=== PATIENT | female | born 2000 | race African-American/Black ===

== ENCOUNTER 2022-11-30 15:46 | Emergency (ER) | payer OTHER, SELFPAY ==
--- NOTE | ~2022-11-30 | US_ITS ---
EXAMINATION: OBSTETRIC ULTRASOUND-SECOND TRIMESTER CLINICAL INFORMATION: Abdominal pain, . COMPARISON: Pelvic ultrasound 01/14/2018. TECHNIQUE: Transabdominal imaging of the uterus was performed utilizing [place] scale and color doppler technique, with m-mode imaging. FINDINGS: Single live intrauterine fetus in the vertex position with cardiac activity detected at 125 bpm. Low anterior placenta. BIOMETRIC MEASUREMENTS FOLLOWS: Biparietal diameter: 8.28 cm corresponding to gestational age of 33 weeks and 3 days. Head circumference: 30.23 cm corresponding to gestational age of 33 weeks and 5 days. Abdominal circumference: 26.88 cm corresponding to a gestational age of 31 weeks and 0 days. Femur length: 6.2 cm corresponding to gestational age of 32 weeks and 1 day. US/US OB limited IMPRESSION: 1. Single live intrauterine with estimated gestational age by ultrasound of 32 weeks and 4 days. heart rate is 125 bpm. 2. Estimated weight 3 pounds and 15 ounces. 3. Low anterior placenta, adequate correlation with the cervical os to rule out placenta previa was not obtained. Additional evaluation by OB-specialist is advised. 4. Of note, this examination was not obtained for assessment of the anatomy. OB specialist evaluation is recommended.
[2022-11-30 15:51] VITALS: BP 108/60; BP 113/81; PULSE 91; PULSE 94; RESP 16; TEMP 36.9; O2SAT 97; O2SAT 98; BMI 22.6
[2022-11-30 16:05] VITALS: BP 113/81; PULSE 91; RESP 16; TEMP 36.9; O2SAT 98
[2022-11-30 17:12] LABS: MANUAL DIFF FLAG NO
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
[2022-11-30 17:17] LABS: Basophils Percent Auto 0.5 % (0-2); Eosinophils Absolute Auto 0.1 X10*3/uL (0.0-0.4); Eosinophils Percent Auto 1.1 % (0-4); Hematocrit 34.1 % (37.0-47.0); Hemoglobin 11.1 g/dl (12.0-16.0); Imm Gran Abs Auto 0.04 X10*3/uL (0.00-0.03); Imm Gran Pct Auto 0.5 % (0.0-0.4); Lymphocytes Absolute Auto 2.3 X10*3/uL (1.2-4.9); Lymphocytes Percent Auto 27.5 % (20-40); Mean Corpuscular HGB Conc 32.6 g/dl (31.0-35.0); Mean Corpuscular Hemoglobin 31.7 pg (27.0-33.0); Mean Corpuscular Volume 97.4 fL (80.0-98.0); Mean Platelet Volume 8.3 fL (9.4-12.3); Monocytes Absolute Auto 0.6 X10*3/uL (0.1-1.2); Monocytes Percent Auto 7.6 % (2-11); Neutrophils Absolute Auto 5.2 x10*3/uL (2.0-8.3); Neutrophils Percent Auto 62.8 % (45-73); Platelet Count 234 X10*3/uL (160-400); Red Cell Distribution Width 13.9 % (11.0-16.0); White Blood Count 8.2 X10*3/uL (4.8-10.8)
[2022-11-30 17:29] LABS: COVID-19 Test Negative (Negative); IDNOW Serial# 9DB6401D
[2022-11-30 17:37] LABS: Alanine Aminotransferase 19 U/L (0-31); Albumin Level 3.2 g/dL (3.5-5.0); Alkaline Phosphatase 114 U/L (39-117); Anion Gap 11 (12-20); Aspartate Amino Transferase 16 U/L (5-31); Bilirubin Total 0.3 mg/dL (0.0-1.0); Blood Urea Nitrogen 7 mg/dL (9-16); Calcium 8.7 mg/dL (8.4-10.2); Carbon Dioxide 25 mmol/L (22-29); Chloride 106 mmol/L (96-108); Creatinine Clr Calc Pharmacy 143.1; Estimated Glomerular Filt Rate > 60; Glucose Random 69 mg/dL (60-115); Lipase 10 U/L (8-78); Magnesium 1.9 mg/dL (1.6-2.6); Potassium 4.2 mmol/L (3.3-5.1); Sodium 138 mmol/L (135-145); Total Protein 6.2 g/dL (6.5-8.0)
[2022-11-30 17:38] LABS: HCG Quantitative 1637 mIU/mL
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
[2022-11-30 19:37] VITALS: PULSE 80; O2SAT 99
--- NOTE | 2022-11-30 19:39 | PC.NURSE ---
pt calm and cooperative with this RN at this time, plan to transfer care to the pod, GOVIND Gonsales called report given.
[2022-11-30 19:52] LABS: Amphetamine Screen Urine Not Detected (Not Detect); Barbiturates, Urine Not Detected (Not Detect); Benzodiazepines Screen Urine Not Detected (Not Detect); Cannabinoid Screen Urine POSITIVE (Not Detect); Cocaine Screen Urine Not Detected (Not Detect); Fentanyl, urine Not Detected (Not Detect); Opiate Screen Urine Not Detected (Not Detect); Phencyclidine Screen Urine Not Detected (Not Detect)
[2022-11-30 19:55] LABS: Appearance Urine Error; Color Urine Yellow; Glucose Urine UA >=1000 mg/dL (Negative); Leukocyte Esterase Urine Negative (Negative); Nitrite Urine Negative (Negative); Specific Gravity - Urine >= 1.030 (1.005-1.025); UMIC TRIGGER UACC YES; Urine Blood Negative (Negative); Urine Ketones Negative (Negative); Urine Protein Trace mg/dL (Neg-Trace)
[2022-11-30 19:59] LABS: Bacteria Urine 2+ (None Seen); Hyaline Casts Urine 0-2 /LPF (0-2); RBC Urine 0-2 /HPF (0-2); WBC Urine 0-5 /HPF (0-5)
[2022-11-30 20:05] LABS: Ethanol < 10 mg/dL
[2022-11-30 20:12] LABS: UPreg QC Valid YES; Urine Pregnancy POSITIVE (NEGATIVE)
--- NOTE | 2022-11-30 20:58 | P.CONOB_ITS ---
OB Consult Note - [facility] Data Service Date: 11/30/22 Primary Care Provider: Unknown Physician Narrative I was consulted on Kane Mota who is a 22 year old female with a history of PTSD presenting to the emergency department on a Section 12 from [facility] for failure to thrive, not acting like herself..? Not taking care of herself .? The patient is with no care thinks is at around pre 2 weeks of gestation.? She reports intermittent abdominal cramping however not present at this time.? No vaginal bleeding, leakage of fluid or bleeding . Good movements according to the patient. Following workup was done emergency room: CBC, blood sugar, creatinine, AST/ALT, UA all within normal OB ultrasound showed the followin.? Single live intrauterine with estimated gestational age by ultrasound of 32 weeks and 4 days. heart rate is 125 bpm. 2.? Estimated weight 3 pounds and 15 ounces. 3.? Low anterior placenta, adequate correlation with the cervical os to rule out placenta previa was not obtained. Additional evaluation by OB-specialist is advised. 4.? Of note, this examination was not obtained for assessment of the anatomy. OB specialist evaluation is recommended [facility] Social History Social History Alcohol intake: never Smoked in Last 30 Days: No Use of substances other than those prescribed or required for medical reasons: No Advance Directives: No Advance Directives Information Provided: No Patient : Yes Meds Allergies Allergy/AdvReac Type Severity Reaction Status Date / Time almond [ALMOND] Allergy Unknown UNKNOWN Unverified 05/06/20 19:00 apple [APPLE] Allergy Unknown UNK Unverified 05/06/20 19:00 latex [LATEX] Allergy Unknown UNKNOWN Unverified 05/06/20 19:00 SEASONAL ALLERGIES Allergy Unknown UNKNOWN Uncoded 05/06/20 19:00 Home Medications Medication Instructions Recorded Confirmed Last Taken Type ferrous sulfate 325 mg (65 mg 325 mg PO DAILY 11/30/22 11/30/22 Unknown History iron) tablet vit,calcium no.40-iron 1 tab PO DAILY 11/30/22 11/30/22 Unknown History fum 27 mg iron-folate no.1 1 mg tablet (PNV-Select) OB Consult Results Labs 11/30/22 17:06 11/30/22 17:06 Labs: Short CBC 11/30/22 Range/Units 17:06 WBC 8.2 (4.8-10.8) X10*3/uL Hgb 11.1 L (12.0-16.0) g/dl Hct 34.1 L (37.0-47.0) % Plt Count 234 (160-400) X10*3/uL BMP 11/30/22 17:06 Sodium 138 Potassium 4.2 Chloride 106 Carbon Dioxide 25 BUN 7 L Creatinine 0.61 Calcium 8.7 Liver Function 11/30/22 Range/Units 17:06 Total Bilirubin 0.3 (0.0-1.0) mg/dL AST 16 (5-31) U/L ALT 19 (0-31) U/L Alkaline Phosphatase 114 (39-117) U/L Albumin 3.2 L (3.5-5.0) g/dL Urine 11/30/22 11/30/22 Range/Units 19:35 19:35 Urine Color Yellow Urine Appearance Error Urine pH 6.0 (5.0-9.0) Ur Specific [place] >= 1.030 H (1.005-1.025) Urine Protein Trace (Neg-Trace) mg/dL Urine Glucose (UA) >=1000 H (Negative) mg/dL Urine Test POSITIVE H (NEGATIVE) OB - CN: A/P Assessment and Plan (1) Post traumatic stress disorder: Status: Inactive Assessment and Plan: Defer the management to the emergency room and psychiatry team (2) : Status: Inactive Assessment and Plan: Recommended the following to STEPHANE Christie: -The patient does not have care, will need a initial obstetrical labs, CBC, hepatitis-B surface antigen, HIV, syphilis screen, hepatitis-C antibody, 1 hour glucose test, rubella antibody, anomaly ultrasound evaluation of placental location to rule out placenta previa, cervical culture, cystic fibrosis screen. -Since the patient is not capable of describing movements and was complai shane on and off of lower abdominal cramps although resolved currently, will need to be placed on the monitor marcos to rule out contractions and for an nonstress test to evaluate the well-being; [place]/NST monitor is not available at [facility] since there is no maternity unit . OB Ultrasound showed a low anterior placenta but could not rule out placenta previa, radiology recommended ultrasound by MFM to evaluate placental location, there is no MFM service available at [facility]. Till then, a pelvic exam is contraindicated till previa is ruled out. In an effort to evaluate the and screen for any urgent obstetrical conditions, I recommend to transfer the patient to the emergency room psychiatric hold unit at [facility]. I spent a total of 20 minute reviewing the chart, communicating to the emergency room provider and documenting in the medical record Time Spent With Patient Time: Total time managing care of this patient today ____ minutes.
--- NOTE | 2022-11-30 22:21 | PC.NURSE ---
Patient is currently in her room, on phone talking to family member, patient is 32 week without no care reporting abdominal pain and is now awaiting to be transferred [facility] for further care and support, calm and quiet, not happy being ED POD, VSS, patient was sent here by [facility] with compliant of catatonia, no catatonia was observed, will continue to monitor,
== END 2022-11-30 22:53 | disposition short-term general hospital (02) ==
PROVIDERS: Physician Assistant; Emergency Provider Emergency Medicine
DX: F43.10 Post-traumatic stress disorder, unspecified (principal); R25.2 Cramp and spasm; Z20.822 Contact with and (suspected) exposure to COVID-19; Z20.828 Contact with and (suspected) exposure to other viral communicable diseases; Z79.899 Other long term (current) drug therapy
CPT/HCPCS: 76815; 80053; 80307; 81001; 81025; 82077; 83690; 83735; 84702; 85025; 87635; 99285